=== PATIENT | female | born 1940 | race Caucasian/White ===

== ENCOUNTER 2018-08-08 09:29 | Inpatient (IN) ==
--- NOTE | 2018-08-08 10:14 | Diag Imaging Result Doc PS360 ---
EXAM: XRAY HIP UNILATERAL LT 08/08/2018 HISTORY: fall, L hip pain TECHNIQUE: Left hip two views COMMENT: There is a comminuted intertrochanteric fracture of the femur. There is fecal impaction in the rectum. IMPRESSION: Left intertrochanteric fracture and fecal impaction. Electronically signed by Dylan Stover 08/08/2018 10:11 AM
[2018-08-08 11:49] LABS: URINE SOURCE CATH
--- NOTE | 2018-08-08 11:53 | EKG Report ---
Test Performed on : 08/08/2018 10:43:00 AM Test Reason : FX L HIP Blood Pressure : / mmHG Vent. Rate : 073 BPM Atrial Rate : 073 BPM P-R Int : 138 ms QRS Dur : 076 ms QT Int : 390 ms P-R-T Axes : 075 022 065 degrees QTc Int : 429 ms Normal sinus rhythm. Junctional ST depression, probably normal Borderline ECG No previous ECGs available Unconfirmed Result
[2018-08-08 12:04] LABS: BILIRUBIN URINE NEGATIVE (NEGATIVE); BLOOD URINE NEGATIVE (NEGATIVE); COLOR YELLOW; GLUCOSE URINE NEGATIVE (NEGATIVE); KETONE URINE TRACE mg/dL (NEGATIVE); LEUKOCYTES URINE NEGATIVE (NEGATIVE); NITRITE URINE NEGATIVE (NEGATIVE); PH URINE 6.5; PROTEIN URINE TRACE mg/dL (NEGATIVE); SP GRAVITY URINE 1.019; TURBIDITY URINE CLEAR (CLEAR); UROBILINOGEN URINE NORMAL (NORMAL)
[2018-08-08 12:05] LABS: UR EPITHELIAL CELLS <10 /HPF (<10); URINE BACTERIA NEGATIVE /HPF; URINE RBC <10 /HPF (<10); URINE WBC <10 /HPF (<10)
[2018-08-08 12:22] LABS: AGAP 10; ALB/GLOB RATIO 1.4; ALBUMIN 3.8 g/dL (3.5-5.0); ALKALINE PHOSPHATASE 63 U/L (32-104); BUN 18 mg/dL (8-22); CALCIUM 8.7 mg/dL (8.8-10.2); CHLORIDE 100 mmol/L (98-107); COSMO 276; CREATININE 0.7 mg/dL (0.5-0.9); ESTIMATED GFR > 60; GLUCOSE 103 mg/dL (70-104); GOT 22 U/L (10-30); GPT 12 U/L (10-36); INR 1.01; POTASSIUM 4.1 mmol/L (3.5-5.1); PROTIME 14.2 Seconds (11.0-16.0); PTT 31.2 Seconds (22.3-41.8); SODIUM 137 mmol/L (136-145); TCO2 27 mmol/L (25-35); TOTAL BILIRUBIN 0.37 mg/dL (0.20-1.00); TOTAL PROTEIN 6.5 g/dL (6.3-8.3)
[2018-08-08 12:30] LABS: BASO# 0.02 X1000 (0.0-0.2); BASO% 0.2 % (0.0-0.8); EOS# 0.02 X1000 (0.0-0.7); EOS% 0.2 % (0.0-10.0); HEMATOCRIT 37.2 % (37.0-47.0); HEMOGLOBIN 12.3 g/dL (12.0-16.0); IMM GRAN# 0.02 X1000 (0.0-0.04); IMM GRAN% 0.2 % (0.0-0.5); LYMPH# 0.65 X1000 (1.2-3.4); LYMPH% 6.1 % (20.5-51.1); MCH 27.2 PG (27-31); MCHC 33.1 g/dL (33-37); MCV 82.3 FL (81-99); MONO# 0.67 X1000 (0.11-0.59); MONO% 6.3 % (1.7-9.3); MPV 10.1 FL (7.4-10.4); NEUT# 9.21 X1000 (1.4-6.5); PLT 211 X1000 (130-400); RBC 4.52 XMIL (4.2-5.4); RDW 13.8 % (11.5-14.5); WBC 10.59 X1000 (4.8-10.8)
--- NOTE | 2018-08-08 12:42 | PROVIDER DOCUMENTATION ---
This chart was entered by Judith Garcia Scribe, acting as scribe for Rory Shelton MD. HPI-Musculoskeletal Pain/Inj - GENERAL Chief Complaint: Hip Pain Stated Complaint: FALL/ POSSIBLE FRACTURE Time Seen by Provider: 08/08/18 10:17 Source: patient, family (), EMS - HX OF PRESENT ILLNESS-MUSKULOSKELTAL Nature of Presenting Problem: 78 yowf presents to [facility] ed via ems with hip fx. pt sts she tripped over a tree root and fell onto left side. pt declines pain medication with ems and in ed at this time. pt is a/o x4 on exam Quality of Pain: reports: sharp (with movement only) Severity in ED: mild Onset/Duration: just prior to arrival Timing: still present Modifying Factors: improves with: immobilization. worse with: movement, palpation Any recent injury?: Yes Locality of Occurance: Home Similar Symptoms Previously?: No Recently seen or treated by another doctor?: No - FALL INJURY Location of Pain/Injury: reports: lower extremity Reason for Fall: reports: tripped Symptoms prior to fall:: reports: none Loss of Consciousness: no loss of consciousness Injury Associated Symptoms: reports: snap/crack/pop sensation, unable to bear weight, trouble walking. denies: back/neck pain, chest pain, diaphoresis, dizziness, headaches Review of Systems - Adult - REVIEW OF SYSTEMS - ADULT Constitutional: denies: chills, fever Eyes: reports: no symptoms reported Ears, Nose, Mouth & Throat: reports: no symptoms reported Cardiovascular: denies: chest pain, palpitations Respiratory: denies: shortness of breath, wheezing Gastrointestinal: denies: abdominal pain, diarrhea, nausea, vomiting Genitourinary: reports: no symptoms reported Musculoskeletal: reports: see HPI, joint pain (left hip). denies: back pain, neck pain Integumentary: reports: no symptoms reported Neurological: denies: dizziness/vertigo, headache/migraines Psychiatric: reports: no symptoms reported Endocrine: reports: no symptoms reported Hematologic/Lymphatic: reports: no symptoms reported Allergic/Immunologic: reports: no symptoms reported All Other Systems: Reviewed and Negative Past History - Adult - PAST MEDICAL HISTORY-ADULT Review of Records: reports: Nursing Assessment Review, Medications Reviewed Major Childhood Illnesses: reports: denies history Cardiovascular: reports: hyperlipidemia Respiratory: reports: denies history Gastrointestinal: reports: denies history Obstetrical/Gynecological: reports: denies history Genitourinary: reports: denies history Musculoskeletal: reports: chronic pain, osteoporosis Neurological: reports: denies history Psychiatric: reports: denies history Endocrine/Immune: reports: thyroid disorder Other Conditions: reports: cataract/glaucoma - PRIOR SURGERIES/PROCEDURES Surgical/Procedure History: reports: reviewed, not pertinent - IMMUNIZATION STATUS Childhood Immunizations: See Nurse Assessment Flu Vaccine: See Nurse Assessment - FAMILY HISTORY Family History: reviewed, not pertinent - SOCIAL HISTORY Smoking: denies Substance Use: denies Living Situation: family Physical Exam-Injury Related - Physical Exam-Injury Related Initial Vital Signs Reviewed: Yes General Appearance: appears well, alert, no apparent distress (pt has no pain till movement of LLE) Eyes: PERRL/EOMI, pink conjunctivae Head, Ears, Nose, Mouth & Throat: normocephalic/atraumatic, moist mucous membranes, normal ENT inspection Neck: non-tender, full range of motion, supple, normal inspection Respiratory: chest non-tender, lungs clear, normal breath sounds Cardiovascular: normal peripheral pulses, regular rate, rhythm Chest/Breast: deferred Abdominal Exam: normal bowel sounds, non tender, soft Female Genitalia/Pelvic Exam: deferred Rectal Exam: deferred Hemoccult Exam: deferred Lymphatic: no adenopathy Back Exam: normal inspection, no CVA tenderness, no vertebral tenderness Extremity: no pedal edema, no calf tenderness, normal capillary refill, deformity (left hip with LLE externally rotated). negative: normal gait, normal inspection Integumentary: normal color, warm/dry Neurologic: grossly normal, no motor/sensory deficits Psych/Mental Status: normal mood/affect, normal thought content, normal thought process, oriented x 3 - Glascow Coma Score Best Eye Response (Alena): (4) open spontaneously Best Verbal Response (Alena): (5) oriented Best Motor Response ([place]): (6) obeys commands Alena Total: 15 Progress - PLAN OF CARE/RESULTS Progress/Plan/Lab Results: Vital Signs - 8 hr 08/08/18 09:37 Temperature 97.9 F Pulse Rate 68 Respiratory Rate 15 Blood Pressure 153/75 O2 Sat by Pulse Oximetry 90 L Laboratory Results - last 24 hr 08/08/18 08/08/18 08/08/18 11:15 11:15 11:15 WBC 10.59 RBC 4.52 Hgb 12.3 Hct 37.2 MCV 82.3 MCH 27.2 MCHC 33.1 RDW Std Deviation 13.8 Plt Count 211 MPV 10.1 Immature Gran % (Auto) 0.2 Neut % (Auto) 87.0 H Lymph % (Auto) 6.1 L Cherry % (Auto) 6.3 Eos % (Auto) 0.2 Baso % (Auto) 0.2 Immature Gran # (Auto) 0.02 Neut # (Auto) 9.21 H Lymph # (Auto) 0.65 L Cherry # (Auto) 0.67 H Eos # (Auto) 0.02 Baso # (Auto) 0.02 PT 14.2 INR 1.01 PTT (Actin FS) 31.2 Sodium 137 Potassium 4.1 Chloride 100 Carbon Dioxide 27 Anion Gap 10 BUN 18 Creatinine 0.7 Estimated GFR/1.73 m2 > 60 BUN/Creatinine Ratio 26 Glucose 103 Calculated Osmolality 276 Calcium 8.7 L Total Bilirubin 0.37 AST 22 ALT 12 Alkaline Phosphatase 63 Total Protein 6.5 Albumin 3.8 Globulin 2.7 Albumin/Globulin Ratio 1.4 Urine Source Urine Color Urine Turbidity Urine pH Ur Specific Empire Urine Protein Ur Glucose (Stick) Ur Ketones (Stick) Urine Blood Urine Nitrite Urine Bilirubin Urobilinogen Dipstick Urine Leukocytes Urine WBC (Auto) Urine RBC (Auto) U Epithel Cells (Auto) Urine Bacteria (Auto) 08/08/18 11:42 WBC RBC Hgb Hct MCV MCH MCHC RDW Std Deviation Plt Count MPV Immature Gran % (Auto) Neut % (Auto) Lymph % (Auto) Cherry % (Auto) Eos % (Auto) Baso % (Auto) Immature Gran # (Auto) Neut # (Auto) Lymph # (Auto) Cherry # (Auto) Eos # (Auto) Baso # (Auto) PT INR PTT (Actin FS) Sodium Potassium Chloride Carbon Dioxide Anion Gap BUN Creatinine Estimated GFR/1.73 m2 BUN/Creatinine Ratio Glucose Calculated Osmolality Calcium Total Bilirubin AST ALT Alkaline Phosphatase Total Protein Albumin Globulin Albumin/Globulin Ratio Urine Source CATH Urine Color YELLOW Urine Turbidity CLEAR Urine pH 6.5 Ur Specific [place] 1.019 Urine Protein TRACE A Ur Glucose (Stick) NEGATIVE Ur Ketones (Stick) TRACE A Urine Blood NEGATIVE Urine Nitrite NEGATIVE Urine Bilirubin NEGATIVE Urobilinogen Dipstick NORMAL Urine Leukocytes NEGATIVE Urine WBC (Auto) <10 Urine RBC (Auto) <10 U Epithel Cells (Auto) <10 Urine Bacteria (Auto) NEGATIVE Orders Category Date Time Status Marks Cath Insertion ORDERED Care 08/08/18 11:42 Active Nursing- Obtain EKG ONCE Care 08/08/18 10:35 Active XRAY HIP UNILATERAL LT [RAD] Stat Exams 08/08/18 09:49 Completed CBC WITH DIFF [HEME] Stat Lab 08/08/18 11:15 Results COMPREHENSIVE METABOLIC PANEL [CHEM] Stat Lab 08/08/18 11:15 Completed PROTIME WITH INR [COAG] Stat Lab 08/08/18 11:15 Completed PTT [COAG] Stat Lab 08/08/18 11:15 Completed URINALYSIS W/POSS RFLX CULT [URINALYSIS] Stat Lab 08/08/18 11:42 Completed EKG [EKG] Stat Ther 08/08/18 10:35 Draft Transfer/Admit Order [TRANSFER] Routine Transfer 08/08/18 12:31 Ordered Result Diagrams: 08/08/18 11:15 08/08/18 11:15 - REASSESSMENT Reassessment #1 Time Reassessed: 10:44 Status: unchanged Reassessment Comment: pt is resting in bed - EKG 1 Time of EKG reading by physician:: 10:48 EKG Read and Signed by:: Rory Shelton EKG Interpretation (*Must complete 3 of following elements*): Normal (borderline) Rate: 73 Rhythm: nsr [place]: normal QRS: normal VT Interval: normal Comments: junctional st depression, probably normal - XRAY 1 XRAY: Left XRAY Study: Hip Impression: See EMR Report (EXAM: XRAY HIP UNILATERAL LT 08/08/2018 HISTORY: fall, L hip pain TECHNIQUE: Left hip two views COMMENT: There is a comminuted intertrochanteric fracture of the femur. There is fecal impaction in the rectum. IMPRESSION: Left intertrochanteric fracture and fecal impaction. Electronically signed by Dylan Stover 08/08/2018 10:11 AM 08/08/18 1011 Interpreting Physician: Dylan Stover MD Dictated Date/Time: 08/08/18 1011 cc: Rory Shelton MD; Jordi Martin MD) - CONSULTS/PCP/HOSPITALIST Notification #1 *Consult/PCP/Hospitalist*: dr goldstein hospitalist Time Discussed: 10:41 (dr goldstein is at bedside) Consult Disposition: Admit Departure - Departure Date of Disposition Decision: 08/08/18 Time of Disposition Decision: 11:24 DIAGNOSIS: Intertrochanteric fracture of left hip Qualifiers: Encounter type: initial encounter Fracture type: closed Fracture alignment: displaced Qualified Code(s): S72.142A - Displaced intertrochanteric fracture of left femur, initial encounter for closed fracture Disposition: ADMITTED INPATIENT 09 Certified Medical Emergency: Emergent Condition: Good Referrals and Follow-Ups: Jordi Martin MD [Primary Care Provider] - - Critical Care Note This patient required my direct & personal management of CC.: Yes Attestation - Physician/ JUSTINE Attestation Patient care was provided by Advanced Practice Provider:: No The physician spent face to face time with patient:: Yes Advanced Practice Provider documentation review:: Supervising physician onsite and consulted in the evaluation and care of this patient. The physician did have a face to face encounter with the patient. This chart was documented by the indicated scribe, (Judith Garcia Scribe) and accurately reflects the services I performed and decisions made by me, Rory Shelton MD, as attested by the provider's signature.
[2018-08-08 12:49] LABS: BANDS 4 % (0-1); LYMPHS 8 % (21-51); MONO 4 % (1-9); SEGS 84 % (42-75)
[2018-08-08] MEDS ORDERED: DULCOLAX PR ONE (13:26)
[2018-08-08] MEDS ORDERED: TYLENOL PO PRN (13:26)
[2018-08-08] MEDS ORDERED: ZOFRAN IV PRN (13:26)
[2018-08-08] MEDS: MORPHINE IV PRN (13:41)
--- NOTE | 2018-08-08 14:00 | HISTORY AND PHYSICAL ---
PRIMARY CARE PROVIDER: Dr. Jordi Martin. CHIEF COMPLAINT: Fall with left hip pain. HISTORY OF PRESENT ILLNESS: Ms. Dyer is a pleasant 78-year-old female who carries a past medical history of osteoarthritis, hyperlipidemia, and glaucoma who reports she was outside working in her yard, and she tripped over a tree root and fell onto her left side. There was no preceding dizziness, chest pain, palpitations, or syncope. No recent illness. Workup in the ED revealed a hip x-ray that showed a left intertrochanteric fracture and a fecal impaction. Initial vital signs shows her hypoxemic, unknown if this was a correct showing. We will have them recheck her vital signs, place her on supplemental O2, and check a chest x-ray. Admit her to the surgical telemetry floor with orthopedic consult. We will continue with pain medications. She was complaining of some muscle spasms around the left hip area, and clear her fecal impaction. PAST MEDICAL HISTORY: 1. Osteoarthritis. 2. Hyperlipidemia. 3. Glaucoma. PAST SURGICAL HISTORY: 1. Left breast fibroid cyst removed that was benign. 2. Cyst on the thyroid removed that was benign. SOCIAL HISTORY: Ms. Dyer is . Her is at the bedside. No alcohol, tobacco or illicit drug use. FAMILY HISTORY: Reviewed and noncontributory. REVIEW OF SYSTEMS: A 14 point review of systems completely negative except for those mentioned in HPI. ALLERGIES: No known drug allergies. HOME MEDICATIONS: Have not been reconciled. PHYSICAL EXAMINATION: VITAL SIGNS: Temperature is 97.9 degrees, heart rate 68, respirations 16, blood pressure 153/75, and O2 is 98% on room air. HEENT: Atraumatic, normocephalic. PERRL. NECK: Supple. Trachea midline. CARDIOVASCULAR: S1, S2 appreciated. No murmurs, gallops, or rubs noted. RESPIRATORY: Lung sounds are clear bilaterally. GI: Soft, nontender, and nondistended. Positive bowel sounds x4 quadrants. There is no lower extremity edema. Bilateral pedal pulses are palpable. No signs of clubbing or cyanosis. SKIN: Appears to be warm, dry, and intact. DIAGNOSTIC DATA: Left hip x-ray left intertrochanteric fracture and fecal impaction. EKG shows normal sinus rhythm with a junctional ST depression that is normal. Chest x-ray pending. ASSESSMENT AND PLAN: 1. Fall outside, mechanical. No loss of consciousness resulted in a left intertrochanteric fracture. The patient will be moved to the surgical floor. Consul Orthopedics. Continue with the analgesia for pain p.r.n. We will make her n.p.o. after midnight, and then initiate IV fluids. 2. Questionable hypoxia. The patient's O2 saturation was 98% on room air. She does not appear to be in any respiratory distress or air hunger. We will go ahead and check a chest x-ray as well as recheck her labs. There is an order placed for supplemental O2. We will check ABG if warranted. 3. Osteoarthritis. Aware. 4. Hyperlipidemia. Aware. We will check a lipid profile. 5. Glaucoma. 6. Further recommendation to follow physician evaluation, and laboratory data. 7. Fecal impaction. We will visually clear any impaction and give her p.r.n. bisacodyl as well as start her on p.o. Colace and MiraLAX. 8. Further recommendations to follow physician evaluation, laboratory and diagnostic data. Patient seen and examined by me face to face, all the laboratory, vitals signs and images were reviewed, patient presented to the emergency department with hip fracture, no history of diabetes or hypertension, left lower extremity deformity due to fracture but neurovascular intact, orthopedic surgery will be consulted, I agree with the AUDIT OFFICER's assessment and plan, Earl Rodriguez MD Dictated by GLORY Leal for Earl Diez MD cc: MD Jordi Wei MD Robert S. Tapscott, MD MTDD
--- NOTE | 2018-08-08 15:35 | CONSULTATION ---
DATE OF CONSULTATION: 08/10/2018 HISTORY: The patient is a pleasant 78-year-old female who is status post fall while working in the yard. The patient force that she tripped over a tree root and fell on her left side developed pain and discomfort. She denies loss of conscious. She presented to the emergency room and x- rays revealed a left displaced femoral neck fracture. Orthopedic consultation was requested. HOME MEDICATIONS: Home medications have not been reconciled. ALLERGIES: No known drug allergies. PAST MEDICAL HISTORY: Osteoarthritis, hyperlipidemia, glaucoma. PAST SURGICAL HISTORY: Excision of fibroid cyst left breast, benign fibroid excision cyst. Excision of benign cyst on thyroid. PHYSICAL EXAMINATION: Patient is awake, alert, cooperative with exam. Her cervical spine is nontender palpation. Her bilateral upper extremities have no palpable deformity. Able actively elevate arms with no pain or discomfort. The right lower extremity has no palpable deformity. She has no discomfort with palpation or with movement. Does have some discomfort. Left hip has tenderness with diffuse tenderness to palpation. Tenderness with gentle movement left hip. Her calf is soft. She has active dorsiflexion and plantar flexion. X-RAYS: X-rays were reviewed revealing left displaced intertrochanteric femur fracture. IMPRESSION: Left displaced intertrochanteric femur fracture. PLAN: At this point I would recommend pursuing intramedullary nailing of the left femur tomorrow. The patient will be NPO after midnight. Risks of benefits of surgery were explained, including the risks of anesthesia, , bleeding, infection, fairly failure to relieve pain, postoperative stiffness, nerve injury, blood clots, and other imponderables. We will begin IV fluids for hydration. All questions were answered. The patient and family agree treatment plan. cc: Chenet Vargas MD
[2018-08-08] MEDS: NS 1,000 ML IV SCH (18:01)
[2018-08-08] MEDS: COLACE PO SCH (22:19)
[2018-08-09] MEDS: NS 1,000 ML IV SCH ×5 (02:47→22:16)
[2018-08-09] MEDS: MORPHINE IV PRN (04:49)
--- NOTE | 2018-08-09 07:02 | PROGRESS NOTE ---
DATE: 08/09/2018 SUBJECTIVE: The patient is a pleasant, 78-year-old female who is 1 day status post fall, sustaining a left intertrochanteric femur fracture. She was admitted to the hospital yesterday. An orthopedic consultation was requested. The patient is currently resting comfortably. PHYSICAL EXAMINATION: On physical examination, the patient's left lower extremity has tenderness to palpation, diffuse along the hip. Calf is soft. She has active dorsiflexion and plantar flexion. IMPRESSION: Left displaced intertrochanteric femur fracture. PLAN: At this point, we will plan on proceeding with intramedullary nailing of the left femur later today. The risks and benefits were discussed, and all questions answered. The patient agrees to the treatment plan. cc: Chente Vargas MD
--- NOTE | 2018-08-09 07:18 | Diag Imaging Result Doc PS360 ---
EXAM: CHEST-PORTABLE 08/09/2018 HISTORY: hypoxia TECHNIQUE: AP portable at 0327 COMMENT: There is subsegmental atelectasis in the left lower lobe. There is no evidence of acute pulmonary disease otherwise. There is scoliosis of the thoracic spine with convexity to the right. The heart size and pulmonary vascularity are within normal limits. There is evidence of a bone infarct or enchondroma in the proximal left humerus. No previous studies are available for comparison. IMPRESSION: Left lower lobe atelectasis. Electronically signed by Dylan Stover 08/09/2018 7:16 AM
[2018-08-09 07:41] LABS: AGAP 7; BUN 19 mg/dL (8-22); CALCIUM 7.7 mg/dL (8.8-10.2); CHLORIDE 98 mmol/L (98-107); COSMO 265; CREATININE 0.8 mg/dL (0.5-0.9); ESTIMATED GFR > 60; GLUCOSE 107 mg/dL (70-104); SODIUM 131 mmol/L (136-145); TCO2 26 mmol/L (25-35)
[2018-08-09] MEDS: PRILOSEC PO SCH (08:02)
[2018-08-09] MEDS: COLACE PO SCH ×2 (08:02→20:51)
[2018-08-09 08:40] LABS: BASO# 0.01 X1000 (0.0-0.2); BASO% 0.1 % (0.0-0.8); EOS# 0.01 X1000 (0.0-0.7); EOS% 0.1 % (0.0-10.0); HEMATOCRIT 29.7 % (37.0-47.0); HEMOGLOBIN 9.5 g/dL (12.0-16.0); LYMPH% 16.4 % (20.5-51.1); MCH 26.8 PG (27-31); MCV 83.7 FL (81-99); MONO# 0.79 X1000 (0.11-0.59); MONO% 11.8 % (1.7-9.3); MPV 9.6 FL (7.4-10.4); NEUT# 4.81 X1000 (1.4-6.5); NEUT% 71.6 % (42.2-75.2); PLT 181 X1000 (130-400); RBC 3.55 XMIL (4.2-5.4); RDW 13.9 % (11.5-14.5); WBC 6.72 X1000 (4.8-10.8)
[2018-08-09] MEDS ORDERED: XYLOCAINE-MPF 2% ONE (10:33)
[2018-08-09] MEDS ORDERED: ROBINUL ONE (10:33)
[2018-08-09] MEDS ORDERED: SODIUM CHLORIDE 0.9% 10 ML ONE ×2 (10:33→10:35)
[2018-08-09] MEDS ORDERED: FENTANYL ONE (10:36)
[2018-08-09] MEDS ORDERED: DIPRIVAN 1% ONE (10:37)
--- NOTE | 2018-08-09 10:42 | PROGRESS NOTE ---
DATE: 08/09/2018 SUBJECTIVE: Patient is resting comfortably in bed. She is not complaining of pain at this moment. Family members at the bedside. She is scheduled for surgery today. OBJECTIVE: Vital Signs: Temperature 97.9 degrees, pulse 73, respiratory rate 16, blood pressure 123/57, and oxygen saturation 96 on room air. HEENT: Head normocephalic. No trauma. PERRLA. Neck: Supple. No JVD. No masses. Central trachea. Chest: Clear to auscultation. No wheezing. No rales. Abdomen: Soft, nontender, and nondistended. No hepatosplenomegaly. Extremities: No edema. No clubbing. No cyanosis. She does have a left lower extremity that is externally rotated and short compared with the right lower extremity. Pain to palpation at the level of the left hip. Neurological: Alert and oriented x3. No focal deficits. LABORATORY: WBC 6.7, hemoglobin 9.5, hematocrit 29.7, and platelets 181,000. Sodium 131, potassium 4, chloride 98, bicarbonate 26, BUN 19, creatinine 0.8, glucose 107, and calcium 7.7. ASSESSMENT AND PLAN: 1. Left intertrochanteric fracture, status post fall outside. Orthopedic Surgery evaluated this patient. The plan is to go ahead and do go to the OR today for surgery. 2. Osteoarthritis. Aware. 3. Hyperlipidemia. Continue with home medications. 4. Glaucoma. She is not on medications at home to treat glaucoma. I advised the patient to see her baseball hand sewer to re-evaluate on that. 5. Constipation. We have placed this patient on docusate twice a day and she received a suppository of Dulcolax yesterday. We will monitor on that. cc: Earl Diez MD
[2018-08-09] MEDS ORDERED: KEFZOL 1 GM/D5W 1 GM/50 ML IVPB ONE (11:34)
[2018-08-09] MEDS ORDERED: ZOFRAN ONE (11:57)
[2018-08-09] MEDS ORDERED: DECADRON ONE (12:21)
[2018-08-09] MEDS: MORPHINE ONE ×3 (13:22→13:35)
--- NOTE | 2018-08-09 13:34 | OPERATIVE NOTE ---
PROCEDURE DATE: 08/09/2018 PREOPERATIVE DIAGNOSIS: Left displaced intertrochanteric femur fracture. POSTOPERATIVE DIAGNOSIS: Left displaced intertrochanteric femur fracture. PROCEDURE: Intramedullary nailing left femur with Synthes TFN 11 x 400 mm nail. SURGEON: Chente Vargas MD. BLAST FURNACE CHECKER: GLORY Nelson. ANESTHESIA: General. IV FLUIDS: 1000 mL lactated Ringer. ESTIMATED BLOOD LOSS: 100 mL. COMPLICATIONS: None. INDICATIONS: The patient is an 78-year-old female, who is 1 day status post fall injuring her left hip. She presented to the emergency room. X-rays revealed a left displaced intertrochanteric femur fracture. Orthopedic consultation was requested. Recommendation to proceed with intramedullary nailing left femur was offered. Risks and benefits of surgery were explained, including the risks of anesthesia, , bleeding, infection, failure to relieve pain, postoperative stiffness, nerve injury, blood clots, and other imponderables. All questions were answered. Patient and family wished to proceed with surgery. DETAILS OF OPERATION: Patient was taken to the operating room and underwent general anesthesia. After adequate anesthesia was obtained, patient was placed supine on the fracture table. Reduction was obtained and was confirmed with C-arm visualization in both AP and lateral projections. After this had been performed, left lower extremity was subsequently prepped and draped in the usual sterile fashion. Approximately 3 fingerbreadths proximal to the greater trochanter, a lateral incision was made. Blunt dissection was performed to the gluteus marvin down to the tip of the greater trochanter with the Sharma scissors. After this had been performed, a guide pin was then placed in the intramedullary canal starting at the tip of the greater trochanter. After this had been performed, starting reamer was passed. Ball-tipped guide pin was then advanced and the length of the nail was determined to be 400 mm. Sequential reaming was conducted up to size 12 mm in preparation for 11 mm diameter nail. An 11 x 400 mm Synthes TFN nail was then advanced over the ball-tipped guide pin. After placement of the nail, the ball- tipped guide pin was removed. Using the outrigger guide, an incision was made along the proximal thigh. A guide was then placed along the proximal lateral cortex of the femur and the guide pin was advanced across the fracture site into the femoral neck and head. Good positioning was confirmed with C-arm visualization in both AP and lateral projections. The lateral cortex was reamed. A 95 mm helical blade was then advanced and had good purchase. The proximal set screw was tightened. After this had been performed using perfect [place] shoshone technique through a stab incision, a distal locking screw was placed from lateral to medial after the screw had been placed, final C-arm visualization, good alignment of the fracture and good position of the hardware. The wounds were copiously irrigated. A #1 Vicryl was used to repair the deep fascia in the proximal wound followed by 2-0 Vicryl in the two proximal wounds and skin nely in all the wounds. Adaptic, sterile 4 x 4s, ABD pad, and tape were applied to the left lower extremity. Patient tolerated this procedure well, and was transferred to the recovery room in stable condition. cc: Chente Vargas MD
[2018-08-09] MEDS ORDERED: MORPHINE ONE (13:44)
[2018-08-09] MEDS ORDERED: MORPHINE IV PRN (14:18)
[2018-08-09] MEDS ORDERED: ZOFRAN IV PRN (14:18)
[2018-08-09] MEDS ORDERED: MILK OF MAGNESIA PO PRN (14:18)
[2018-08-09] MEDS ORDERED: HALDOL IV PRN (14:30)
[2018-08-09] MEDS: TYLENOL PO SCH ×2 (16:32→23:29)
[2018-08-09 17:16] LABS: HEMATOCRIT 27.4 % (37.0-47.0); HEMOGLOBIN 8.7 g/dL (12.0-16.0)
[2018-08-09] MEDS: KEFZOL 1 GM/D5W 1 GM/50 ML IVPB IV SCH (20:51)
[2018-08-09] MEDS ORDERED: COLACE PO SCH (21:00)
[2018-08-10] MEDS: KEFZOL 1 GM/D5W 1 GM/50 ML IVPB IV SCH ×2 (05:11→11:36)
[2018-08-10] MEDS: XARELTO PO SCH (05:11)
[2018-08-10] MEDS: NS 1,000 ML IV SCH ×3 (05:12→15:12)
[2018-08-10 07:16] LABS: EOS# 0.01 X1000 (0.0-0.7); EOS% 0.1 % (0.0-10.0); HEMATOCRIT 23.4 % (37.0-47.0); HEMOGLOBIN 7.4 g/dL (12.0-16.0); LYMPH% 8.7 % (20.5-51.1); MCH 26.7 PG (27-31); MCHC 31.6 g/dL (33-37); MCV 84.5 FL (81-99); MONO# 1.05 X1000 (0.11-0.59); MPV 10.1 FL (7.4-10.4); NEUT# 6.33 X1000 (1.4-6.5); NEUT% 78.2 % (42.2-75.2); PLT 168 X1000 (130-400); RBC 2.77 XMIL (4.2-5.4); RDW 13.7 % (11.5-14.5); WBC 8.09 X1000 (4.8-10.8)
[2018-08-10 07:30] LABS: AGAP 5; BUN 13 mg/dL (8-22); CALCIUM 7.7 mg/dL (8.8-10.2); CHLORIDE 96 mmol/L (98-107); COSMO 254; CREATININE 0.6 mg/dL (0.5-0.9); ESTIMATED GFR > 60; GLUCOSE 103 mg/dL (70-104); POTASSIUM 4.2 mmol/L (3.5-5.1); SODIUM 126 mmol/L (136-145); TCO2 25 mmol/L (25-35)
[2018-08-10] MEDS: FERROUS SULFATE PO SCH (08:39)
[2018-08-10] MEDS: COLACE PO SCH ×2 (08:39→21:41)
[2018-08-10] MEDS: TYLENOL PO SCH ×3 (08:39→23:45)
[2018-08-10] MEDS: PRILOSEC PO SCH (08:39)
[2018-08-10] MEDS: OXY IR PO PRN ×2 (08:40→12:58)
--- NOTE | 2018-08-10 09:08 | ORTHOPAEDICS PROGRESS NOTE ---
DATE: 08/10/2018 SUBJECTIVE: The patient is a pleasant 78-year-old female who is 1 day status post intramedullary nailing of the left femur. She is currently resting comfortably. OBJECTIVE: The patient's left lower extremity dressing is intact. Calf is soft. She has active dorsiflexion and plantar flexion. LABORATORY DATA: Her labs are pending. IMPRESSION: Postoperative day #1 status post intramedullary nailing of the left femur. PLAN: At this point, patient will begin mobilization with physical therapy, weightbearing as tolerated on the left lower extremity. We will plan on changing her dressing tomorrow. Property Underwriter has been consulted for discharge planning for inpatient rehabilitation. cc: Chente Vargas MD
--- NOTE | 2018-08-10 10:44 | PROGRESS NOTE ---
DATE: 08/10/2018 SUBJECTIVE: This patient is resting comfortably in bed, a little bit of pain at the level of the left hip. No acute events. Hemoglobin dropped to 7.4. We will monitor for now. OBJECTIVE: Vital Signs: Temperature 97.6 degrees, pulse 76, respiratory rate 16, blood pressure 155/58, oxygen saturation is 100% on 2 L nasal cannula. HEENT: Head normocephalic and atraumatic. PERRLA. Neck: Supple. No JVD. No masses. Central trachea. Chest: Clear to auscultation. No wheezing. No rales. Abdomen: Soft, nontender, nondistended. No hepatosplenomegaly. Extremities: She does have a dressing at the level of the left hip with a little bit of serous discharge. I do not see any blood. No signs of infection. She is able to move both extremities. Pulses are intact. Neurological: Alert and oriented x3. No focal neurological deficits. LABORATORY DATA: WBC 8.0, hemoglobin 7.4, hematocrit 23.4, platelets 168,000. Sodium 126, potassium 4.2, chloride 96, bicarbonate 25, BUN 13, creatinine 0.6, glucose 103, calcium 7.7. ASSESSMENT AND PLAN: 1. Left intertrochanteric fracture status post intramedullary nailing of the left femur. Postoperative day #1. She seems to be doing good, we will continue with the same management. Orthopedic Surgery on board. This patient should go to a rehabilitation center early next week. 2. Osteoarthritis. Aware. 3. Hyponatremia. I have stopped all the fluids, I will continue only with treatment and food by mouth. We will monitor. No symptoms. 4. Hyperlipidemia. Aware. 5. Glaucoma. Aware. 6. Constipation. She has been getting docusate 100 mg p.o. twice a day. I will add suppositories daily to see how she does. Milk of magnesia as needed. cc: Earl Diez MD
[2018-08-10] MEDS: DULCOLAX PR SCH (11:46)
[2018-08-10 14:53] LABS: HEMATOCRIT 23.1 % (37.0-47.0); HEMOGLOBIN 7.4 g/dL (12.0-16.0)
[2018-08-11] MEDS: NS 1,000 ML IV SCH (03:51)
[2018-08-11] MEDS: XARELTO PO SCH (06:36)
[2018-08-11 07:03] LABS: AGAP 4; BUN 10 mg/dL (8-22); CALCIUM 7.7 mg/dL (8.8-10.2); CHLORIDE 100 mmol/L (98-107); COSMO 260; CREATININE 0.6 mg/dL (0.5-0.9); ESTIMATED GFR > 60; GLUCOSE 94 mg/dL (70-104); POTASSIUM 4.5 mmol/L (3.5-5.1); SODIUM 130 mmol/L (136-145); TCO2 26 mmol/L (25-35)
[2018-08-11 07:08] LABS: HEMATOCRIT 20.8 % (37.0-47.0); HEMOGLOBIN 6.6 g/dL (12.0-16.0)
[2018-08-11] MEDS: PRILOSEC PO SCH (08:05)
[2018-08-11] MEDS: DULCOLAX PR SCH (08:05)
[2018-08-11] MEDS: TYLENOL PO SCH ×3 (08:05→23:47)
[2018-08-11] MEDS: COLACE PO SCH ×2 (08:05→23:47)
[2018-08-11] MEDS: FERROUS SULFATE PO SCH (08:05)
--- NOTE | 2018-08-11 09:44 | PROGRESS NOTE ---
DATE: 08/11/2018 SUBJECTIVE: Jyotsna Dyer is an 78-year-old female treated by Dr. Vargas for left intertrochanteric hip fracture with a TFN placement. She has no complaints today. She is very pleasant and appears comfortable. OBJECTIVE: She is a well-developed, well-nourished female. She is alert, oriented, and cooperative with exam. Her hematocrit is 20.8, her hemoglobin is 6.6. She was able to walk 5 steps with physical therapy yesterday. Her vital signs are stable. Her leg is neurovascularly intact. ASSESSMENT: Stable left hip from trochanteric fixation nail surgery on 08/09. PLAN: We will transfuse her 2 units today. We will continue working with physical therapy. I will have the nurses change her dressing today. We will be following her over the weekend. cc: Darrick Quezada MD
--- NOTE | 2018-08-11 17:31 | PROGRESS NOTE ---
DATE: 08/11/2018 SUBJECTIVE: The patient resting comfortably in bed, her hemoglobin dropped to 6.6 and she has been getting 2 units of PRBCs, orthopedic surgery on board. Continue physical therapy. OBJECTIVE: Vital Signs: Temperature 99.3, pulse 96, respiratory rate 18, blood pressure 153/61, oxygen saturation 98 on room air. HEENT: Head normocephalic. No trauma, PERRLA. Neck: Supple. No JVD. No masses. Central trachea. Chest: Clear to auscultation. No wheezing. No rales. Abdomen: Soft, nontender, nondistended. No hepatosplenomegaly. Extremities: She does have a dressing at the level of the left hip with a little bit of serous discharge, I do not see any blood. No signs of infection. She moved both extremities. Pulses are intact. Neurological: Alert and oriented x3. No focal deficits. LABORATORY: Hemoglobin 6.6, hematocrit 20.8. Sodium 130, potassium 4.5, chloride 100, bicarbonate 26, BUN 10, creatinine 0.6, glucose 94, calcium 7.7. ASSESSMENT AND PLAN: 1. Left intertrochanteric fracture status post intramedullary nailing of the left femur, postoperative day #2. She seems to be doing good. Hemoglobin dropped to 6.6. She will receive 2 units of PRBCs. Continue with physical therapy. Orthopedic Surgery on board. 2. Acute blood loss anemia, likely secondary to a right intertrochanteric fracture and surgical procedure, she will receive 2 units of PRBCs. We will monitor the hemoglobin and hematocrit. 3. Osteoarthritis, aware. 4. Hyponatremia. This is getting better. We will monitor. 5. Hyperlipidemia, aware. 6. Glaucoma, aware. 7. Constipation. Continue with docusate twice a day and suppositories daily, it looks like she had a bowel movement today. cc: Earl Diez MD
[2018-08-11] MEDS: OXY IR PO PRN (18:00)
[2018-08-12] MEDS: XARELTO PO SCH (06:34)
[2018-08-12 07:03] LABS: HEMATOCRIT 31.3 % (37.0-47.0); HEMOGLOBIN 10.2 g/dL (12.0-16.0)
[2018-08-12 07:16] LABS: AGAP 7; BUN 7 mg/dL (8-22); CALCIUM 7.9 mg/dL (8.8-10.2); CHLORIDE 101 mmol/L (98-107); COSMO 269; CREATININE 0.5 mg/dL (0.5-0.9); ESTIMATED GFR > 60; GLUCOSE 90 mg/dL (70-104); POTASSIUM 4.1 mmol/L (3.5-5.1); SODIUM 136 mmol/L (136-145); TCO2 28 mmol/L (25-35)
[2018-08-12] MEDS: TYLENOL PO SCH ×2 (07:56→15:43)
[2018-08-12] MEDS: FERROUS SULFATE PO SCH (07:56)
[2018-08-12] MEDS: PRILOSEC PO SCH (08:06)
[2018-08-12] MEDS: DULCOLAX PR SCH (08:07)
[2018-08-12] MEDS: COLACE PO SCH ×2 (08:07→22:23)
[2018-08-12] MEDS: VITAMIN D PO SCH (08:11)
[2018-08-12] MEDS: CALTRATE 600 + D PO SCH ×2 (08:11→22:23)
--- NOTE | 2018-08-12 08:13 | PROGRESS NOTE ---
DATE: 08/12/2018 SUBJECTIVE: Jyotsna Dyer is an 78-year-old female on whom Dr. Vargas did a left TFN on 08/09/2018. She has no real complaints today. She seems to be doing well. Her color is much improved and she is much more alert today. OBJECTIVE: She is a well-developed, well-nourished female. She is alert, oriented, and cooperative with the exam. Her wounds are clean, dry, and intact without sign of infection. Her leg is neurovascularly intact without sign of DVT. Her hematocrit is 31.3 and her hemoglobin is 10.2. ASSESSMENT: Stable left trochanteric fixation nail. PLAN: Continue working with physical therapy. She will likely go to rehab the first part of the week. Dr. Vargas will return to follow her tomorrow. cc: Darirck Quezada MD
--- NOTE | 2018-08-12 15:29 | PROGRESS NOTE ---
DATE: 08/12/2018 SUBJECTIVE: The patient is resting comfortably in bed. Hemoglobin and hematocrit have improved from 6.6 to 10.2. She is feeling better. Mild pain at the level of the left hip. No acute events overnight. Sodium level normalized. OBJECTIVE: Vital Signs: Temperature 98.2 degrees, pulse 81, respiratory rate 16, blood pressure 128/63, oxygen saturation 98 on room air. HEENT: Head normocephalic. No trauma. PERRLA. Neck: Supple. No JVD. No masses. Central trachea. Chest: Clear to auscultation. No wheezing. No rales. Abdomen: Soft, nontender, nondistended. No hepatosplenomegaly. Extremities: She does have a dressing at the level of the hip with a little bit of serous discharge. I do not see any blood. No signs of infection. She moves both extremities. Pulses are intact. Neurological: Alert and oriented x3. No focal deficits. LABORATORY DATA: Hemoglobin 10.2, hematocrit 31.3. Sodium 136, potassium 4.1, chloride 101, bicarbonate 28, BUN 7, creatinine 0.5, glucose 90, calcium 7.9. ASSESSMENT AND PLAN: 1. Left intertrochanteric fracture, status post intramedullary nailing of the left femur, postoperative day #3. She seems to be doing good. Hemoglobin improved from 6.6 to 10.2. She has no dizziness or any symptoms. Continue physical therapy. Orthopedic Surgery on board. 2. Acute blood loss anemia, likely secondary to right intertrochanteric fracture and surgical procedure. She received 2 units of packed red blood cells. Will monitor. 3. Osteoarthritis. Aware. 4. Hyponatremia, resolved. 5. Hyperlipidemia. Aware. 6. Glaucoma. Aware. 7. Constipation. Continue with docusate twice a day. The plan is to send this patient to a rehab center. She seems to be stable and ready to be discharged. cc: Earl Diez MD
[2018-08-12] MEDS ORDERED: ZOCOR PO SCH (21:00)
[2018-08-12] MEDS ORDERED: FORTICAL NAS SCH (21:00)
[2018-08-13] MEDS: TYLENOL PO SCH ×2 (00:59→08:09)
[2018-08-13 06:38] LABS: HEMATOCRIT 30.7 % (37.0-47.0)
[2018-08-13] MEDS: XARELTO PO SCH (06:39)
[2018-08-13] MEDS: FERROUS SULFATE PO SCH (08:09)
[2018-08-13] MEDS: VITAMIN D PO SCH (08:10)
[2018-08-13] MEDS: DULCOLAX PR SCH (08:10)
[2018-08-13] MEDS: PRILOSEC PO SCH (08:10)
[2018-08-13] MEDS: CALTRATE 600 + D PO SCH (08:10)
[2018-08-13] MEDS: COLACE PO SCH (08:10)
[2018-08-13] MEDS: OXY IR PO PRN (11:07)
[2018-08-13 11:16] VITALS: BP 135/69
--- NOTE | 2018-08-13 13:07 | DISCHARGE SUMMARY ---
ADMISSION DATE: 08/08/2018 DISCHARGE DATE: 08/13/2018 ADMITTING DIAGNOSES: 1. Mechanical fall outside with left intertrochanteric fracture. 2. Questionable hypoxia. 3. Osteoarthritis. 4. Hyperlipidemia. 5. Glaucoma. 6. Fecal impaction. DISCHARGE DIAGNOSES: 1. Left intertrochanteric fracture, status post intramedullary nailing of the left femur, postop day 4 now. She was followed with Orthopedic Surgery and Physical Therapy. 2. Acute blood loss anemia secondary to fracture and surgical procedure. Received 2 units of packed red blood cells. Hemoglobin went from as low as 6.6 up to 10 and 30 today. 3. Osteoarthritis. Aware. 4. Hyponatremia, resolved. 5. Hyperlipidemia. Aware. 6. Glaucoma. Aware. 7. Constipation. Continue with docusate twice a day. CONSULTATIONS: Dr. Vargas who performed on 08/09/2018 an intramedullary nailing of the left femur due to a left displaced intertrochanteric femur fracture. SURGICAL PROCEDURES: Left femur intramedullary nailing on 08/09/2018. HOSPITAL COURSE: On 08/08/2018, Ms. Jyotsna Dyer, an 78-year-old female, who has a medical history of osteoarthritis, reported an outside mechanical fall while working in her yard. Apparently she tripped on a tree root and fell on her left side. There was no syncopal report. ER revealed a left intertrochanteric fracture and also a fecal impaction. She underwent surgery on 08/09/2018 for nailing of the fracture that was performed by Dr. Vargas. She also became anemic down to 6.6 but received 2 units of packed red blood cells which resolved the anemia or improved it to 10 of hemoglobin. All other comorbidities were treated as usual with home medications resumed, and then there was a questionable hypoxia on admit, but she had room air saturations of 98%, and there were no signs of respiratory distress or air hunger. Vitals are stable. Labs are stable. She is deemed appropriate for discharge to [facility] post surgery. DISCHARGE VITAL SIGNS: Temperature is 98.0, heart rate 89, respiratory rate 19, blood pressure 135/69, O2 saturation is 99% on room air. DISCHARGE LAB DATA: Hemoglobin is 10, hematocrit 30. BMP on 08/12/2018 showed sodium 136, potassium 4.1, BUN of 7, creatinine 0.5, glucose 90, calcium 7.9. PERTINENT IMAGING: On 08/08/2018, hip x-ray showed left intertrochanteric fracture and fecal impaction. On 08/09/2018, chest x-ray showed left lower lobe atelectasis. EKG on 08/08/2018 showed normal sinus rhythm, rate was 73, QTC was 429. DISCHARGE DIET: Regular. DISCHARGE ACTIVITY: She has been working with physical therapy on that, and the last order was for WBAT, weightbearing as tolerated. No driving until directed by physician. No driving while taking pain medication. DISCHARGE MEDICATIONS: 1. Zocor 40 mg p.o. nightly. 2. Caltrate 600 plus D p.o. twice daily. 3. Calcitonin nasal spray nightly. 4. Vitamin D3 1000 units p.o. daily. 5. Oxy-IR 5 mg p.o. every 3 hours p.r.n. 6. Colace 100 mg p.o. twice daily. 7. Ferrous sulfate 325 mg p.o. with breakfast. 8. Milk of magnesia 30 mL p.o. daily p.r.n. 9. Tylenol 650 mg p.o. every 6 hours p.r.n. 10.Xarelto 10 mg p.o. every 24 hours. DISCHARGE PHYSICIAN FOLLOWUP: Dr. Vargas and Dr. Jordi Martin. DISCHARGE INSTRUCTIONS: Instructions sent home for open reduction internal fixation for hip fracture care after. Also [id number] adult fall prevention in the home. She is to take medications as prescribed. If your condition changes, contact your physician and/or return to the emergency department. Changes include but are not limited to shortness of breath, increased fatigue, excessive bleeding, unexplained weight loss or gain, unmanageable pain, signs or symptoms of infection. WOUND CARE: Keep incision clean and dry. Do not submerge the incision in water. No lotions. [facility] 40 minutes Dictated by GLORY Bush for Earl Diez MD cc: GLORY Bush MD Rodney W. Harney, MD [facility], MD [facility]
== END 2018-08-13 14:12 | DRG 481 ==
LOC: SUPCPDRO → ED 09:29 → 4N 13:05
PROVIDERS: ATTEND Internal Medicine
CPT/HCPCS: 36430; 51702; 71010; 71045; 73502; 76000; 80048; 80053; 81001; 85014; 85018; 85025; 85610; 85730; 86850; 86900; 86901; 86920; 93005; 94760; 94761; 94799; 97116; 97162; 97530; 99285; A9270; J0690; J1100; J2270; J2405; J3010; J7030; P9016